=== PATIENT | female | born 1950 | race Native Hawaiian/Other Pacific Islander ===

== ENCOUNTER 2021-11-01 19:33 | Emergency (ER) | payer OTHER ==
[~2021-11-01] VITALS: Ht 170.2 cm; Wt 65.8 kg
[2021-11-01 19:55] LABS: PLATELET COUNT 176 K/uL (152-353)
[2021-11-01 20:00] LABS: POTASSIUM 3.9 mmol/L (3.6-5.2)
[2021-11-01 20:08] LABS: PARTIAL THROMBOPLASTIN TIME 29.4 SECONDS (24.5-33.6)
[2021-11-01 21:05] VITALS: BP 136/57; TEMP 98.2
== END 2021-11-01 21:05 | disposition home or self-care (01) ==
LOC: ED 19:33 → EDBD 19:33 → ED 21:05
PROVIDERS: Emergency Medicine
DX: R30.0 Dysuria (principal); R00.2 Palpitations; I48.91 Unspecified atrial fibrillation
CPT/HCPCS: 36415; 80053; 81002; 83880; 84484; 85027; 85610; 85730; 93005; 99283

== ENCOUNTER 2022-07-10 11:15 | Emergency (ER) | payer OTHER ==
[~2022-07-10] VITALS: Ht 165.1 cm; Wt 63.5 kg
[2022-07-10 11:21] VITALS: TEMP 97.9
[2022-07-10 12:58] LABS: PLATELET COUNT 165 K/uL (152-353)
[2022-07-10 13:12] LABS: POTASSIUM 4.1 mmol/L (3.6-5.2)
[2022-07-10 14:00] VITALS: BP 159/55
== END 2022-07-10 14:00 | disposition short-term general hospital (02) ==
LOC: ED 11:15
PROVIDERS: Internal Medicine
DX: I62.00 Nontraumatic subdural hemorrhage, unspecified (principal); I10 Essential (primary) hypertension
CPT/HCPCS: 36415; 80053; 85027; 96374; 96375; 96376; 99285; J2270; J2405

== ENCOUNTER 2022-07-22 17:27 | Inpatient (IN) | payer OTHER | END 2022-07-31 09:04 | disposition home health service (06) | LOC: PAVB 17:27 | PROVIDERS: ADMIT Family Medicine; ATTEND Family Medicine | DX: I60.9 Nontraumatic subarachnoid hemorrhage, unspecified (principal); I47.1 Supraventricular tachycardia; M54.81 Occipital neuralgia; R51.9 Headache, unspecified; I48.0 Paroxysmal atrial fibrillation; M62.81 Muscle weakness (generalized); R13.13 Dysphagia, pharyngeal phase; R26.2 Difficulty in walking, not elsewhere classified; R41.841 Cognitive communication deficit; Z74.1 Need for assistance with personal care | CPT/HCPCS: 87081 ==